=== PATIENT | male | born 1950 | race African-American/Black ===

== ENCOUNTER 2017-10-23 06:32 | Emergency (ER) | payer MEDICARE, SELFPAY ==
[2017-10-23] MEDS ORDERED: Clindamycin 150 MG CAP ONE (07:30)
[2017-10-23] MEDS ORDERED: HYDROcodone/Acetaminophen 10/325 mg Tablet ONE (07:31)
[2017-10-23] MEDS ORDERED: Ibuprofen 800 MG TAB ONE (07:32)
[2017-10-23] MEDS ORDERED: Adacel (T-DAP) 0.5 ML VIAL ONE (07:37)
== END 2017-10-23 07:50 | disposition home or self-care (01) ==
LOC: BURERS 06:32
DX: L02.412 Cutaneous abscess of left axilla (principal); L02.411 Cutaneous abscess of right axilla
CPT/HCPCS: 10061; 90471; 90715

== ENCOUNTER 2017-10-25 07:58 | Emergency (ER) | payer MEDICARE | END 2017-10-25 08:42 | disposition home or self-care (01) | LOC: BURERS 07:58 | DX: Z48.817 Encounter for surgical aftercare following surgery on the skin and subcutaneous tissue (principal); I10 Essential (primary) hypertension | CPT/HCPCS: 99282 ==

== ENCOUNTER 2018-01-26 12:40 | Emergency (ER) | payer OTHER, MEDICARE | END 2018-01-26 14:23 | disposition home or self-care (01) | LOC: EDBD 12:40 → BURERS 12:40 | DX: K40.90 Unilateral inguinal hernia, without obstruction or gangrene, not specified as recurrent (principal); I10 Essential (primary) hypertension | CPT/HCPCS: 99284 ==